=== PATIENT | female | born 1975 | race Two or more races ===

== ENCOUNTER 2018-09-04 11:53 | Inpatient (IN) | payer OTHER ==
[~2018-09-04] VITALS: Ht 170.2 cm; Wt 90.7 kg
[~2018-09-04 11:53] MED LIST: CEFD300C37 PO; DENIES; DOCU100C33 PO; INSU100V14 SQ-INSULIN; METF500T PO; diabetic supplies XX
[2018-09-04] MEDS ORDERED: SODIUM CHLORIDE FLUSH 10ML SYR IVF ONE (13:00)
[2018-09-04] MEDS ORDERED: MORPHINE SULFATE 4 MG/ML, 1ML IVPush PRN (13:00)
[2018-09-04] MEDS ORDERED: SODIUM CHLORIDE 0.9% 1,000ML IVBOLUS ONE ×2 (13:00→14:00)
[2018-09-04] MEDS ORDERED: ONDANSETRON 2MG/ML, 2ML IVPush ONE (13:00)
[2018-09-04] MEDS ORDERED: MORPHINE SULFATE 4 MG/ML, 1ML ONE (13:19)
[2018-09-04] MEDS ORDERED: ONDANSETRON 2MG/ML, 2ML ONE (13:19)
[2018-09-04 13:20] LABS: BASOPHILS # (AUTO) 0.02 x10^3/uL (0-0.1); BASOPHILS % (AUTO) 0 % (0-1); EOSINOPHILS # (AUTO) 0.22 x10^3/uL (0-0.4); EOSINOPHILS % (AUTO) 3 % (1-7); LYMPHOCYTES # (AUTO) 1.15 x10^3/uL (1-3.4); LYMPHOCYTES % (AUTO) 14 % (22-44); MD NO; MEAN CORPUSCULAR HEMOGLOBIN 27.1 pg (27.0-34.8); MEAN CORPUSCULAR VOLUME 79.8 fL (80-100); MEAN PLATELET VOLUME 6.9 fL (7.4-10.4); MONOCYTES # (AUTO) 0.47 x10^3/uL (0.2-0.8); MONOCYTES % (AUTO) 6 % (2-9); NEUTROPHILS # (AUTO) 6.48 x10^3/uL (1.8-6.8); NEUTROPHILS % (AUTO) 78 % (42-75); PLATELET COUNT 394 x10^3/uL (130-400); RED BLOOD COUNT 4.33 x10^6/uL (3.82-5.3)
[2018-09-04 13:24] LABS: INTERNATIONAL NORMALIZED RATIO 0.89 (0.93-1.1); PROTHROMBIN TIME 9.3 Seconds (9.6-11.5)
[2018-09-04 13:27] LABS: ALBUMIN 2.8 g/dL (3.4-5.0); ANION GAP 10 mmol/L (5-15); CALCIUM 8.1 mg/dL (8.5-10.1); CHLORIDE 92 mmol/L (98-107)
[2018-09-04 13:30] LABS: TROPONIN I < 0.015 ng/mL (0.000-0.045)
[2018-09-04 14:29] LABS: HCG UR SG 1.023 (1.003-1.030)
[2018-09-04 15:05] LABS: ACETONE, SERUM Trace (10mg/dL) mg/dL (Negative)
[2018-09-04] MEDS ORDERED: OMNIPAQUE 350 MG/ML, 100ML BOTTLE ONE (15:16)
[2018-09-04] MEDS ORDERED: INSU100V8 SQ (16:37)
[2018-09-04 17:16] LABS: RAPID INFLUENZA A Negative (Negative); RAPID INFLUENZA B Negative (Negative)
[2018-09-04 17:30] LABS: CULTURE INDICATED? YES; MICROSCOPIC INDICATED
[2018-09-04] MEDS ORDERED: SODIUM CHLORIDE FLUSH 10ML SYR IVF PRN (17:30)
[2018-09-04] MEDS ORDERED: NS + 20MEQ KCL 1,000 ML IV SCH (18:00)
[2018-09-04] MEDS ORDERED: LABETALOL 5MG/ML, 20ML IVPush PRN (18:00)
[2018-09-04] MEDS ORDERED: INSULIN REGULAR 100 UNITS/ML, 3ML VIAL SQ-INSULIN ONE (18:00)
[2018-09-04] MEDS ORDERED: BISACODYL 10 MG SUPP PR PRN (18:00)
[2018-09-04] MEDS ORDERED: ACETAMINOPHEN 325 MG TABLET PO PRN (18:00)
[2018-09-04] MEDS ORDERED: DOCUSATE 100 MG CAPSULE PO PRN (18:00)
[2018-09-04] MEDS ORDERED: ENALAPRILAT 1.25 MG/ML, 2ML IVPush PRN (18:00)
[2018-09-04] MEDS ORDERED: ONDANSETRON 2MG/ML, 2ML IVPush PRN (18:00)
[2018-09-04 19:13] LABS: ESTIMATED AVERAGE GLUCOSE 413 mg/dL (0-126); HEMOGLOBIN A1C > 16.0 % (4.2-6.3)
[2018-09-04 20:00] VITALS: BP 119/74
[2018-09-04] MEDS: CLINDAMYCIN PMX 600MG/50ML 50 ML IV SCH (22:05)
[2018-09-04] MEDS: HEPARIN 5,000 UNITS/ML, 1ML SQ SCH (22:05)
[2018-09-04] MEDS: LACTOBACILLUS CHEW TABLET PO SCH (22:06)
[2018-09-04] MEDS: ONDANSETRON ODT 4 MG PO PRN (22:50)
[2018-09-05] MEDS: INSULIN LISPRO 100 UNITS/ML, PEN SQ-INSULIN SCH ×5 (00:40→21:15)
[2018-09-05 04:36] VITALS: BP 118/78
[2018-09-05] MEDS: HEPARIN 5,000 UNITS/ML, 1ML SQ SCH ×3 (05:11→21:15)
[2018-09-05] MEDS: CLINDAMYCIN PMX 600MG/50ML 50 ML IV SCH ×3 (05:11→21:15)
[2018-09-05 05:40] LABS: BASOPHILS # (AUTO) 0.01 x10^3/uL (0-0.1); BASOPHILS % (AUTO) 0 % (0-1); EOSINOPHILS # (AUTO) 0.17 x10^3/uL (0-0.4); EOSINOPHILS % (AUTO) 2 % (1-7); LYMPHOCYTES % (AUTO) 18 % (22-44); MD NO; MEAN CORPUSCULAR HEMOGLOBIN 26.9 pg (27.0-34.8); MEAN CORPUSCULAR HGB CONC 33.8 g/dL (32.4-35.8); MEAN CORPUSCULAR VOLUME 79.8 fL (80-100); MEAN PLATELET VOLUME 6.3 fL (7.4-10.4); MONOCYTES # (AUTO) 0.63 x10^3/uL (0.2-0.8); MONOCYTES % (AUTO) 7 % (2-9); NEUTROPHILS # (AUTO) 6.17 x10^3/uL (1.8-6.8); NEUTROPHILS % (AUTO) 73 % (42-75); PLATELET COUNT 428 x10^3/uL (130-400); RED BLOOD COUNT 3.99 x10^6/uL (3.82-5.3); RED CELL DISTRIBUTION WIDTH 13.8 % (9.6-15.2)
[2018-09-05 05:55] LABS: CALCIUM 8.1 mg/dL (8.5-10.1); CHLORIDE 104 mmol/L (98-107)
[2018-09-05 06:09] LABS: ALANINE AMINOTRANSFERASE 14 U/L (12-78); ALBUMIN 2.4 g/dL (3.4-5.0); ALKALINE PHOSPHATASE 70 U/L (45-117); ANION GAP 10 mmol/L (5-15); BILIRUBIN,TOTAL 0.3 mg/dL (0.2-1.0); THYROID STIMULATING HORMONE 0.949 mIU/L (0.358-3.740); TOTAL PROTEIN 7.2 g/dL (6.4-8.2)
[2018-09-05 06:57] VITALS: BP 118/77
[2018-09-05] MEDS: LACTOBACILLUS CHEW TABLET PO SCH ×3 (08:40→21:15)
[2018-09-05] MEDS: SENNA/DOCUSATE TABLET PO SCH (08:41)
[2018-09-05 12:02] VITALS: BP 109/73
[2018-09-05] MEDS ORDERED: MAALOX/HYOSCYAMINE/LIDOCAINE 45 ML BTL PO ONE (13:30)
[2018-09-05 20:36] VITALS: BP 130/82
[2018-09-06 02:54] VITALS: BP 125/84
[2018-09-06] MEDS: HEPARIN 5,000 UNITS/ML, 1ML SQ SCH ×3 (04:56→20:58)
[2018-09-06] MEDS: CLINDAMYCIN PMX 600MG/50ML 50 ML IV SCH ×3 (04:56→20:58)
[2018-09-06] MEDS: ONDANSETRON ODT 4 MG PO PRN (04:56)
[2018-09-06 07:24] VITALS: BP 128/80
[2018-09-06] MEDS: INSULIN LISPRO 100 UNITS/ML, PEN SQ-INSULIN SCH ×4 (08:07→21:00)
[2018-09-06] MEDS: SENNA/DOCUSATE TABLET PO SCH (08:07)
[2018-09-06] MEDS: LACTOBACILLUS CHEW TABLET PO SCH ×3 (08:07→20:57)
[2018-09-06] MEDS ORDERED: INSULIN GLARGINE 100 UNITS/ML, PEN SQ-INSULIN SCH ×2 (09:30→17:00)
[2018-09-06 13:05] VITALS: BP 96/63
[2018-09-06] MEDS ORDERED: INSULIN GLARGINE 100 UNITS/ML, PEN SQ-INSULIN ONE (17:30)
[2018-09-06] MEDS: SODIUM CHLORIDE 0.9% 1,000 ML IV SCH (17:50)
[2018-09-06] MEDS: HYDROcodone/APAP 5/325 TABLET PO PRN (17:53)
[2018-09-06 18:57] VITALS: BP 129/81
[2018-09-07] MEDS: SODIUM CHLORIDE 0.9% 1,000 ML IV SCH ×2 (02:00→12:10)
[2018-09-07 02:58] VITALS: BP 152/96
[2018-09-07 03:00] VITALS: BP 129/84
[2018-09-07 03:02] VITALS: BP 130/82
[2018-09-07] MEDS: CLINDAMYCIN PMX 600MG/50ML 50 ML IV SCH ×2 (05:24→13:00)
[2018-09-07] MEDS: HEPARIN 5,000 UNITS/ML, 1ML SQ SCH ×2 (05:24→13:00)
[2018-09-07] MEDS ORDERED: INSULIN GLARGINE 100 UNITS/ML, PEN SQ-INSULIN SCH ×3 (06:45→09:00)
[2018-09-07 07:40] VITALS: BP 137/84
[2018-09-07] MEDS: SENNA/DOCUSATE TABLET PO SCH (09:11)
[2018-09-07] MEDS: LACTOBACILLUS CHEW TABLET PO SCH (09:11)
[2018-09-07] MEDS: INSULIN LISPRO 100 UNITS/ML, PEN SQ-INSULIN SCH ×2 (09:12→12:10)
[2018-09-07] MEDS ORDERED: metFORMIN 500 MG TABLET PO ONE (10:00)
[2018-09-07] MEDS ORDERED: NPH,100V5 SQ (11:25)
[2018-09-07] MEDS ORDERED: AMOX1TAB64 PO (11:25)
[2018-09-07] MEDS ORDERED: ACID1TAB7 PO (11:25)
[2018-09-07] MEDS ORDERED: METF500T PO (11:25)
[2018-09-07] MEDS: HYDROcodone/APAP 5/325 TABLET PO PRN (12:10)
== END 2018-09-07 18:10 | disposition home or self-care (01) | DRG 602 ==
LOC: ED 16:21 → EDIP 17:27 → 4EST 19:40
PROVIDERS: ADMIT Hospitalist; ATTEND Hospitalist
DX: L03.116 Cellulitis of left lower limb (principal); N17.0 Acute kidney failure with tubular necrosis; E87.1 Hypo-osmolality and hyponatremia; E11.65 Type 2 diabetes mellitus with hyperglycemia; N30.90 Cystitis, unspecified without hematuria; E88.09 Other disorders of plasma-protein metabolism, not elsewhere classified; J45.909 Unspecified asthma, uncomplicated; K22.9 Disease of esophagus, unspecified; Z79.4 Long term (current) use of insulin; Z89.429 Acquired absence of other toe(s), unspecified side; Z83.3 Family history of diabetes mellitus
CPT/HCPCS: 36415; 71045; 71275; 80048; 80053; 81001; 81025; 82010; 82040; 82800; 82962; 83036; 83735; 83880; 84100; 84443; 84484; 85025; 85610; 85730; 87040; 87086; 87400; 93005; 96361; 96374; 96375; G0378; J1644; J1815; J2405; J3480; Q0162; Q9967; J7030

== ENCOUNTER 2018-10-16 10:00 | Inpatient (IN) | payer OTHER ==
[~2018-10-16] VITALS: Ht 167.6 cm; Wt 85.9 kg
[~2018-10-16 10:00] MED LIST changes: +ACID1TAB7 PO; +AMOX1TAB64 PO; +INSU100V8 SQ; +NPH,100V5 SQ
[2018-10-16] MEDS ORDERED: INSU100C SQ-INSULIN (10:54)
[2018-10-16] MEDS ORDERED: DEXAMETHASONE 4 MG TABLET ONE (10:56)
[2018-10-16] MEDS ORDERED: DEXAMETHASONE 4 MG TABLET PO ONE (11:00)
[2018-10-16] MEDS ORDERED: SODIUM CHLORIDE 0.9% 1,000ML IVBOLUS ONE ×4 (11:00→17:30)
[2018-10-16 11:25] LABS: MEAN CORPUSCULAR HEMOGLOBIN 26.4 pg (27.0-34.8); MEAN CORPUSCULAR HGB CONC 33.5 g/dL (32.4-35.8); MEAN CORPUSCULAR VOLUME 78.8 fL (80-100); MEAN PLATELET VOLUME 6.4 fL (7.4-10.4); PLATELET COUNT 371 x10^3/uL (130-400); RED BLOOD COUNT 4.64 x10^6/uL (3.82-5.3); RED CELL DISTRIBUTION WIDTH 13.8 % (9.6-15.2)
[2018-10-16 11:37] LABS: ALANINE AMINOTRANSFERASE 12 U/L (12-78); ALBUMIN 2.8 g/dL (3.4-5.0); ANION GAP 19 mmol/L (5-15); CALCIUM 8.2 mg/dL (8.5-10.1); CHLORIDE 95 mmol/L (98-107)
[2018-10-16 11:39] LABS: ALKALINE PHOSPHATASE 109 U/L (45-117); BILIRUBIN,TOTAL 0.6 mg/dL (0.2-1.0); TOTAL PROTEIN 8.5 g/dL (6.4-8.2)
[2018-10-16 11:47] LABS: CULTURE INDICATED? YES; MICROSCOPIC INDICATED
[2018-10-16 11:50] LABS: MD YES
[2018-10-16 11:52] LABS: ANISOCYTOSIS 1+; BAND#(MANUAL) 2.58 x10^3/uL; BANDS%(MANUAL) 12 % (0-7); LYMPH#(MANUAL) 0.43 x10^3/uL (1-3.4); LYMPHS% (MANUAL) 2 % (22-44); MICROCYTOSIS 1+; MONOS#(MANUAL) 0.43 x10^3/uL (0.3-2.7); MONOS% (MANUAL) 2 % (2-9); SEG#(MANUAL) 18.06 x10^3/uL (1.8-6.8); SEGS% (MANUAL) 84 % (42-75)
[2018-10-16 11:53] LABS: <PLATELET ESTIMATE> ADEQUATE; <PLT MORPHOLOGY> NORMAL PLT MORPH
[2018-10-16] MEDS ORDERED: AZITHROMYCIN 500 MG in SODIUM CHLORIDE 0.9% 250 ML IV ONE (12:30)
[2018-10-16] MEDS ORDERED: CEFTRIAXONE PMX 1GM/50ML 50 ML IV ONE (12:30)
[2018-10-16] MEDS ORDERED: CEFTRIAXONE PMX 1GM/50ML 50 ML ONE (12:35)
[2018-10-16] MEDS ORDERED: SODIUM CHLORIDE 0.9% 1,000 ML IV ONE (13:00)
[2018-10-16] MEDS ORDERED: SODIUM CHLORIDE 0.9% 1,000 ML IV SCH (13:04)
[2018-10-16] MEDS ORDERED: ONDANSETRON ODT 4 MG PO PRN (13:30)
[2018-10-16] MEDS ORDERED: ONDANSETRON 2MG/ML, 2ML IVPush PRN (13:30)
[2018-10-16] MEDS ORDERED: ACETAMINOPHEN 325 MG TABLET PO PRN (13:30)
[2018-10-16 13:47] LABS: HEMOGLOBIN A1C 15.9 % (4.2-6.3)
[2018-10-16 14:05] LABS: FREE T4 (FREE THYROXINE) 1.31 ng/dL (0.76-1.46); THYROID STIMULATING HORMONE 0.636 mIU/L (0.358-3.740)
[2018-10-16 14:35] VITALS: BP 134/84
[2018-10-16] MEDS: AZITHROMYCIN 500 MG in SODIUM CHLORIDE 0.9% 250 ML IV SCH (15:03)
[2018-10-16] MEDS: ENOXAPARIN 40 MG/0.4 ML SQ SCH (15:04)
[2018-10-16] MEDS ORDERED: INSULIN LISPRO 100 UNITS/ML, PEN SQ-INSULIN SCH (16:00)
[2018-10-16] MEDS: INSULIN LISPRO 100 UNITS/ML, PEN SQ-INSULIN SCH ×2 (16:39→21:08)
[2018-10-16 16:50] LABS: ANION GAP 19 mmol/L (5-15); CALCIUM 7.9 mg/dL (8.5-10.1); CHLORIDE 101 mmol/L (98-107); CREATININE 1.28 mg/dL (0.55-1.02)
[2018-10-16 19:18] VITALS: BP 121/73
[2018-10-16] MEDS ORDERED: INSULIN GLARGINE 100 UNITS/ML, PEN SQ-INSULIN SCH (21:00)
[2018-10-16 23:28] LABS: ANION GAP 14 mmol/L (5-15); CALCIUM 7.5 mg/dL (8.5-10.1); CHLORIDE 104 mmol/L (98-107); CREATININE 1.28 mg/dL (0.55-1.02)
[2018-10-17 01:16] VITALS: BP 130/77
[2018-10-17] MEDS ORDERED: SODIUM CHLORIDE 0.9% 1,000 ML IV SCH ×2 (02:00→13:04)
[2018-10-17 05:25] LABS: BASOPHILS # (AUTO) 0.02 x10^3/uL (0-0.1); BASOPHILS % (AUTO) 0 % (0-1); EOSINOPHILS % (AUTO) 0 % (1-7); LYMPHOCYTES # (AUTO) 1.16 x10^3/uL (1-3.4); LYMPHOCYTES % (AUTO) 7 % (22-44); MD NO; MEAN CORPUSCULAR HEMOGLOBIN 26.2 pg (27.0-34.8); MEAN CORPUSCULAR HGB CONC 33.4 g/dL (32.4-35.8); MEAN CORPUSCULAR VOLUME 78.3 fL (80-100); MEAN PLATELET VOLUME 6.6 fL (7.4-10.4); MONOCYTES % (AUTO) 5 % (2-9); NEUTROPHILS # (AUTO) 13.69 x10^3/uL (1.8-6.8); NEUTROPHILS % (AUTO) 87 % (42-75); PLATELET COUNT 343 x10^3/uL (130-400); RED BLOOD COUNT 4.14 x10^6/uL (3.82-5.3); RED CELL DISTRIBUTION WIDTH 14.1 % (9.6-15.2)
[2018-10-17 05:37] LABS: ALBUMIN 2.2 g/dL (3.4-5.0); ANION GAP 11 mmol/L (5-15); CALCIUM 7.4 mg/dL (8.5-10.1); CHLORIDE 105 mmol/L (98-107)
[2018-10-17 05:40] LABS: ALANINE AMINOTRANSFERASE 9 U/L (12-78); ALKALINE PHOSPHATASE 88 U/L (45-117); BILIRUBIN,TOTAL 0.3 mg/dL (0.2-1.0); TOTAL PROTEIN 6.8 g/dL (6.4-8.2)
[2018-10-17 06:49] VITALS: BP 143/85
[2018-10-17] MEDS: SODIUM CHLORIDE 0.9% 1,000 ML IV SCH ×3 (07:51→22:54)
[2018-10-17] MEDS: INSULIN LISPRO 100 UNITS/ML, PEN SQ-INSULIN SCH ×4 (07:58→20:40)
[2018-10-17] MEDS: INSULIN GLARGINE 100 UNITS/ML, PEN SQ-INSULIN SCH ×2 (11:15→20:39)
[2018-10-17] MEDS: GUAIFENESIN ER 600 MG TABLET PO SCH ×2 (11:15→20:40)
[2018-10-17] MEDS: CEFTRIAXONE PMX 2GM/50ML 50 ML IV SCH (12:46)
[2018-10-17 14:44] VITALS: BP 147/90
[2018-10-17] MEDS: AZITHROMYCIN 500 MG in SODIUM CHLORIDE 0.9% 250 ML IV SCH (15:11)
[2018-10-17] MEDS: ENOXAPARIN 40 MG/0.4 ML SQ SCH (15:11)
[2018-10-17 17:32] LABS: CLOSTRIDIUM DIFFICILE ANTIGEN NEGATIVE; CLOSTRIDIUM DIFFICILE TOXIN NEGATIVE (Negative)
[2018-10-17] MEDS ORDERED: FLUCONAZOLE 50 MG TABLET PO ONE (18:00)
[2018-10-17 18:40] VITALS: BP 133/83
[2018-10-18 01:10] VITALS: BP 122/77
[2018-10-18] MEDS: SODIUM CHLORIDE 0.9% 1,000 ML IV SCH (05:30)
[2018-10-18 05:49] LABS: ANION GAP 8 mmol/L (5-15); CALCIUM 6.9 mg/dL (8.5-10.1); CHLORIDE 113 mmol/L (98-107)
[2018-10-18 05:51] LABS: CREATININE 0.82 mg/dL (0.55-1.02)
[2018-10-18 05:59] LABS: BASOPHILS # (AUTO) 0.01 x10^3/uL (0-0.1); BASOPHILS % (AUTO) 0 % (0-1); EOSINOPHILS # (AUTO) 0.45 x10^3/uL (0-0.4); EOSINOPHILS % (AUTO) 4 % (1-7); LYMPHOCYTES # (AUTO) 1.54 x10^3/uL (1-3.4); LYMPHOCYTES % (AUTO) 13 % (22-44); MD NO; MEAN CORPUSCULAR HEMOGLOBIN 25.9 pg (27.0-34.8); MEAN CORPUSCULAR HGB CONC 32.7 g/dL (32.4-35.8); MEAN CORPUSCULAR VOLUME 79.4 fL (80-100); MEAN PLATELET VOLUME 6.5 fL (7.4-10.4); MONOCYTES # (AUTO) 0.76 x10^3/uL (0.2-0.8); MONOCYTES % (AUTO) 7 % (2-9); NEUTROPHILS # (AUTO) 9.02 x10^3/uL (1.8-6.8); NEUTROPHILS % (AUTO) 77 % (42-75); PLATELET COUNT 322 x10^3/uL (130-400); RED BLOOD COUNT 3.93 x10^6/uL (3.82-5.3); RED CELL DISTRIBUTION WIDTH 14.3 % (9.6-15.2)
[2018-10-18] MEDS ORDERED: POTASSIUM CHLORIDE 20 MEQ TAB.ER.PRT PO ONE (07:00)
[2018-10-18 08:00] VITALS: BP 153/91
[2018-10-18] MEDS: GUAIFENESIN ER 600 MG TABLET PO SCH (08:00)
[2018-10-18] MEDS: INSULIN LISPRO 100 UNITS/ML, PEN SQ-INSULIN SCH ×2 (08:00→11:00)
[2018-10-18] MEDS: INSULIN GLARGINE 100 UNITS/ML, PEN SQ-INSULIN SCH (08:02)
[2018-10-18] MEDS ORDERED: FLUTICASONE NASAL SPRAY 16GM NAS SCH (09:00)
[2018-10-18] MEDS ORDERED: PSEUDOEPHEDRINE 30 MG TABLET PO PRN (10:00)
[2018-10-18] MEDS ORDERED: PSEU30TA24 PO (12:44)
[2018-10-18] MEDS ORDERED: FLUT16SP NAS (12:44)
[2018-10-18] MEDS ORDERED: CEFD300C37 PO (12:44)
[2018-10-18] MEDS ORDERED: DOXY100T PO (12:44)
[2018-10-18] MEDS ORDERED: GUAI600T31 PO (12:44)
[2018-10-18] MEDS ORDERED: INSU100I13 SQ-INSULIN (12:44)
[2018-10-18] MEDS: CEFTRIAXONE PMX 2GM/50ML 50 ML IV SCH (12:47)
[2018-10-18] MEDS ORDERED: GUAIFENESIN ER 600 MG TABLET PO SCH (21:00)
== END 2018-10-18 13:35 | disposition home or self-care (01) | DRG 871 ==
LOC: ED 10:43 → EDIP 13:04 → 3NE 13:57
PROVIDERS: ADMIT Internal Medicine; ATTEND Internal Medicine
DX: A41.9 Sepsis, unspecified organism (principal); N17.0 Acute kidney failure with tubular necrosis; J18.0 Bronchopneumonia, unspecified organism; E87.1 Hypo-osmolality and hyponatremia; J02.0 Streptococcal pharyngitis; J45.909 Unspecified asthma, uncomplicated; D64.9 Anemia, unspecified; J01.90 Acute sinusitis, unspecified; E11.65 Type 2 diabetes mellitus with hyperglycemia; Z79.4 Long term (current) use of insulin; Z91.19 Patient's noncompliance with other medical treatment and regimen; Z83.3 Family history of diabetes mellitus; Z87.891 Personal history of nicotine dependence; Z89.429 Acquired absence of other toe(s), unspecified side; Z87.440 Personal history of urinary (tract) infections
CPT/HCPCS: 36415; 71045; 80048; 80053; 81001; 82962; 83036; 83605; 84145; 84439; 84443; 85025; 87040; 87086; 87205; 87324; 87880; 93005; 96361; 96365; G0378; J0456; J0696; J1650; J1815; J7030; J7050